=== PATIENT | male | born 1990 | race Two or more races ===

== ENCOUNTER 2020-04-12 22:46 | Emergency (ER) | payer BC, SELFPAY ==
[2020-04-12] VITALS (11 sets, daily range): BP systolic 125–140; BP diastolic 71–99; PULSE 107–116; RESP 13–25; TEMP 36.7–37.1; O2SAT 94–100
--- NOTE | ~2020-04-12 | XR_ITS ---
EXAMINATION: XR chest 1V portable EXAM DATE: 04/12/2020 23:35 INDICATION: Left-sided chest pain. COVID positive diagnosed on 04/06/2020. TECHNIQUE: Portable AP frontal chest x-ray was obtained. There is no prior study for comparison. FINDINGS: Several small bibasilar opacities, pneumonia and/or atelectasis. Mid and upper lung zones a re clear. No pneumothorax or pleural effusion. Cardiomediastinal silhouette is normal. There are no o sseous abnormalities identified. IMPRESSION: Several bibasilar opacities, pneumonia and/or atelectasis. Reviewed, dictated and finalized at location A. SAW OPERATOR
--- NOTE | 2020-04-12 22:56 | ECG_ITS ---
Measurements Intervals [place] Rate: 111 P: 42 OR: 140 QRS: 40 QRSD: 92 T: 52 QT: 318 QTc: 433 Interpretive Statements SINUS TACHYCARDIA BASELINE ARTIFACT- V1-V2 ABNORMAL ECG Electronically Signed On 04-13-2020 7:15:50 [employer] MARKETING DIRECTOR by Jp Vela D.O.
--- NOTE | 2020-04-12 23:11 | PC.NURSE ---
Assumed care of Pt. report from FRANK Hoyt
[2020-04-12 23:16] LABS: Basophils Percent Auto 0.3 % (0.2-1.2); Hematocrit 44.4 % (42.0-52.0); Hemoglobin 14.5 g/dL (14.0-18.0); Immature Granulocyte Absolute 0.03 K/mm3 (0.00-0.031); Immature Granulocyte Percent A 0.4 % (0-0.5); Lymphocytes Absolute Auto 2.02 K/mm3 (0.9-3.2); Lymphocytes Percent Auto 28.9 % (18.3-44.2); Mean Corpuscular HGB Conc 32.7 g/dl (32-36); Mean Corpuscular Hemoglobin 26.7 pg (26-34); Mean Corpuscular Volume 81.6 fl (80-100); Mean Platelet Volume 9.3 fl (7.4-10.4); Monocytes Absolute Auto 0.6 K/mm3 (0.1-0.6); Monocytes Percent Auto 8.2 % (2.6-8.5); Neutrophils Absolute Auto 4.3 K/mm3 (1.3-6.7); Neutrophils Percent Auto 62.2 % (45.5-73.1); Platelet Count Result 217 k/mm3 (150-375); Red Blood Count 5.44 M/mm3 (4.6-6.20); Red Cell Distribution Width 13.3 % (11.5-14.5)
[2020-04-12 23:26] LABS: INR 0.9; Prothrombin Time 12.3 Seconds (11.1-14.7)
[2020-04-12 23:27] LABS: Anion Gap 8 mmol/L (8-16); Blood Urea Nitrogen 8 mg/dL (9-20); Calcium 8.5 mg/dL (8.4-10.2); Carbon Dioxide 24 mmol/L (22-30); Chloride 104 mmol/L (98-107); Estimated CRCL calculation 151 ml/min; Estimated Glomerular Filt Rate > 60; Glucose 138 mg/dL (75-110); Partial Thromboplastin Time 35.4 SECONDS (22.3-36.8); Potassium 3.7 mmol/L (3.4-5.0); Sodium 136 mmol/L (137-145)
[2020-04-12 23:39] LABS: Troponin I < 0.012 ng/mL (0.000-0.034)
[2020-04-12] MEDS: ASPIRIN 81 MG CHEWABLE TABLET 324 MG PO (23:44)
[2020-04-13] VITALS (7 sets, daily range): BP systolic 123–124; BP diastolic 72–83; PULSE 87–108; RESP 21–23; O2SAT 96–98
[2020-04-13 00:09] LABS: D Dimer 0.44 ug/mL (<0.48)
[2020-04-13] MEDS: SODIUM CHLORIDE 0.9% IV 1,000 ML 999 ML IV CONT (00:09)
[2020-04-13] MEDS: KETOROLAC 30 MG/ML VIAL (*BKC) IV PUSH (00:09)
--- NOTE | 2020-04-13 00:35 | ED.CHESTPAIN ---
HPI - Chest Pain General Chief Complaint: Chest Pain Stated Complaint: sharp l sternal pain Time Seen by Provider: 04/12/20 22:47 Source: patient Mode of arrival: EMS Limitations: no limitations History of Present Illness HPI narrative: 29-year-old with no major medical problems recently diagnosed with Covid here with complaints of left-sided chest pain on and off since last few hours. Patient denies any shortness of breath, cough, nausea or vomiting. Patient states that he has taken Z-Julian prescribed a physician in [place]. He denies any previous history of CAD. complaint: chest pain Onset (ago): hour(s) (4) Timing of current episode: episodic Prior episodes: No Pain location: left chest Pain radiation: none Severity: mild Quality: sharp Relieving factors: nothing Exacerbating factors: nothing Context: recent illness (covid) Risk Factors Coronary artery disease risk factors: none Related Data Home Medications Medication Instructions Recorded Confirmed azithromycin 250 mg PO DAILY 04/12/20 04/12/20 Allergies Allergy/AdvReac Type Severity Reaction Status Date / Time No Known Allergies Allergy Verified 04/12/20 22:52 Review of Systems Review of Systems: All systems reviewed & are unremarkable except as noted in HPI and below Constitutional: Constitutional: Reports no additional constitutional complaints ENT: Reports system reviewed and no additional complaints, except as documented Cardiovascular: Cardiovascular: Reports no additional cardiovascular complaints Respiratory: Respiratory: Reports no additional respiratory complaints Gastrointestinal: Gastrointestinal: Reports no additional gastrointestinal complaints Musculoskeletal: Musculoskeletal: Reports no additional musculoskeletal complaints PMFSH Social History Social History Gender identity (if verbalized by the patient): Male Exam Narrative: Exam Narrative: GENERAL: Well-appearing, well-nourished, and in no acute distress. HEAD: Normocephalic, atraumatic. EYES: PERRLA and EOMI.. NECK: Supple. CHEST: Clear to auscultation. No respiratory distress. HEART: Regular rate and rhythm. No murmur heard. Normal peripheral pulses. ABDOMEN: Soft, nontender, nondistended, normal active bowel sounds. EXTREMITIES: Normal range of motion. No edema. SKIN: Warm, dry, no rash. NEURO: No focal deficits. Alert and oriented x3. PSYCH: Normal mood and affect. Course Course Emergency Course: Patient started feeling much better after IV Toradol and IV fluids. His heart rate has dropped to 90s. I discussed labs, chest x-ray and EKG findings with the patient. At this time his pain is noncardiac. Advised him to drink plenty of fluids recommended him to stop Zithromax. Vital Signs Vital signs: Vital Signs Temperature 37.1 C 04/12/20 22:53 Pulse Rate 113 H 04/12/20 22:53 Respiratory Rate 18 04/12/20 22:53 Blood Pressure 140/83 04/12/20 22:53 Pulse Oximetry 96 04/12/20 22:53 Temperature 36.7 C 04/12/20 22:54 Pulse Rate 116 H 04/12/20 22:57 Respiratory Rate 18 04/12/20 22:54 Blood Pressure 139/88 04/12/20 22:54 Pulse Oximetry 100 04/12/20 22:54 MDM - Chest Pain Lab Data Result diagrams: 04/12/20 23:06 04/12/20 23:06 Labs: Lab Results 04/12/20 04/12/20 04/12/20 Range/Units 23:05 23:06 23:06 WBC 7.0 (4.5-10.0) K/mm3 RBC 5.44 (4.6-6.20) M/mm3 Hgb 14.5 (14.0-18.0) g/dL Hct 44.4 (42.0-52.0) % MCV 81.6 (80-100) fl MCH 26.7 (26-34) pg MCHC 32.7 (32-36) g/dl RDW 13.3 (11.5-14.5) % Plt Count 217 (150-375) k/mm3 MPV 9.3 (7.4-10.4) fl Immature Gran % (Auto) 0.4 (0-0.5) % Neut % (Auto) 62.2 (45.5-73.1) % Lymph % (Auto) 28.9 (18.3-44.2) % [place] % (Auto) 8.2 (2.6-8.5) % Eos % (Auto) 0.0 (0-4.4) % Baso % (Auto) 0.3 (0.2-1.2) % Lymph # (Auto) 2.02 (0.9-3.2)
== END 2020-04-13 | disposition home or self-care (01) ==
PROVIDERS: Emergency Provider Family Medicine
DX: U07.1 COVID-19 (principal); R07.89 Other chest pain; R00.0 Tachycardia, unspecified; R91.8 Other nonspecific abnormal finding of lung field
CPT/HCPCS: 36415; 71045; 80048; 84484; 85025; 85380; 85610; 85730; 93005; 96361; 96374; 99284; A9270; J1885; J7030